=== PATIENT | female | born 1970 | race African-American/Black ===

== ENCOUNTER 2016-05-25 11:10 | Emergency (ER) | payer BC ==
[~2016-05-25] VITALS: Ht 157.5 cm; Wt 140.6 kg
[~2016-05-25 11:10] MED LIST: ADDERALL 10 MG10 MG PO; FERROUS GLUCON325 M4 PO; LASIX 20 MG TAB20 MG PO; MINOCYCLINE HC100 M2 PO; NORVASC10 MG PO; PHENTERMINE H37.5 MG PO; POTASSIUM20 PO
[2016-05-25] MEDS ORDERED: OSELB75 PO (14:08)
[2016-05-25 14:29] VITALS: BP 152/99
== END 2016-05-25 14:30 | disposition home or self-care (01) ==
LOC: ER 11:10
DX: J20.8 Acute bronchitis due to other specified organisms (principal); Z20.828 Contact with and (suspected) exposure to other viral communicable diseases; I10 Essential (primary) hypertension; Z88.1 Allergy status to other antibiotic agents